=== PATIENT | female | born 1965 | race Caucasian/White ===

== ENCOUNTER → 2024-06-18 08:05 | Outpatient (REF) | payer BC, SELFPAY ==
[2024-06-18 09:55] LABS: % Basophils 0.7 % (0-2); % Eosinophils 3.7 % (0-6); % Immature Granulocytes 0.2 % (0-0.5); % Lymphocytes 31.8 % (20.5-51.1); % Monocytes 8.2 % (1.7-9.3); % Neutrophils 55.4 % (42.2-75.2); Absolute Eosinophils 0.2 10^3/uL (0-0.7); Absolute Lymphocytes 1.3 10^3/uL (1.2-3.4); Absolute Monocytes 0.3 10^3/uL (0.1-0.6); Absolute Neutrophils 2.2 10^3/uL (1.4-6.5); Hematocrit 38.9 % (37.0-47.0); Hemoglobin 13.1 g/dL (12.0-16.0); Mean Corp Hgb Conc. 33.7 g/dL (33.0-37.0); Mean Corpuscular Hgb 30.8 pg (27.0-31.0); Mean Corpuscular Volume 91.3 fL (81.0-99.0); Mean Platelet Volume 11.9 fL (7.4-10.4); Nucleated Red Blood Cells % 0 %; Platelet Count 226 10^3/uL (130-400); Red Blood Cell Count 4.26 10^6/uL (4.20-5.40); Red Cell Dist. Width 12.7 % (11.5-14.5)
[2024-06-18 10:20] LABS: ALT (SGPT) 24 U/L (0-35); AST (SGOT) 24 U/L (14-36); Albumin 4.3 g/dl (3.5-5.0); Alkaline Phosphatase 74 U/L (38-126); Blood Urea Nitrogen 13 mg/dl (7-17); Calcium 9.7 mg/dl (8.4-10.2); Carbon Dioxide 24 mmol/L (22-30); Chloride 106 mmol/L (98-107); Glucose 101 mg/dl (70-99); HDL Cholesterol 71 mg/dl; LDL Cholesterol, Calculated 117 mg/dl; Potassium 4.5 mmol/L (3.5-5.1); Sodium 144 mmol/L (135-145); Total Bilirubin 0.4 mg/dl (0.2-1.3); Total Cholesterol 202 mg/dl (50-199); Total Protein 6.7 g/dl (6.3-8.2); Triglyceride 71 mg/dl (10-149); Very Low Density Lipoprotein 14 mg/dl (0-30); eGFR > 60.00
== END ==
LOC: HWLAB 08:05
PROVIDERS: ATTENDING PHYSICIAN Nurse Practitioner Family
DX: Z00.01 Encounter for general adult medical examination with abnormal findings (principal); E03.9 Hypothyroidism, unspecified; F41.9 Anxiety disorder, unspecified
CPT/HCPCS: 36415; 80053; 80061; 84443; 85025

== ENCOUNTER → 2024-11-15 18:08 | Outpatient (REF) | payer BC, SELFPAY | LOC: WDC 18:08 | PROVIDERS: ATTENDING PHYSICIAN Nurse Practitioner Family | DX: Z12.31 Encounter for screening mammogram for malignant neoplasm of breast (principal) | CPT/HCPCS: 77063; 77067 ==

== ENCOUNTER 2024-12-14 06:51 | Emergency (ER) | payer BC, SELFPAY ==
[2024-12-14 07:00] VITALS: BP 138/78
[2024-12-14 07:08] VITALS: BP 127/86
[2024-12-14 07:26] LABS: % Basophils 0.9 % (0-2); % Eosinophils 3.2 % (0-6); % Immature Granulocytes 0.2 % (0-0.5); % Lymphocytes 22.6 % (20.5-51.1); % Monocytes 7.8 % (1.7-9.3); % Neutrophils 65.3 % (42.2-75.2); Absolute Basophils 0.1 10^3/uL (0-0.2); Absolute Eosinophils 0.2 10^3/uL (0-0.7); Absolute Lymphocytes 1.3 10^3/uL (1.2-3.4); Absolute Monocytes 0.4 10^3/uL (0.1-0.6); Absolute Neutrophils 3.6 10^3/uL (1.4-6.5); Hematocrit 39.2 % (37.0-47.0); Mean Corp Hgb Conc. 33.2 g/dL (33.0-37.0); Mean Corpuscular Hgb 30.4 pg (27.0-31.0); Mean Corpuscular Volume 91.6 fL (81.0-99.0); Mean Platelet Volume 11.6 fL (7.4-10.4); Nucleated Red Blood Cells % 0 %; Platelet Count 189 10^3/uL (130-400); Red Blood Cell Count 4.28 10^6/uL (4.20-5.40); Red Cell Dist. Width 12.8 % (11.5-14.5); White Blood Cell Count 5.5 10^3/uL (4.8-10.8)
[2024-12-14 07:36] LABS: ALT (SGPT) 16 U/L (0-35); AST (SGOT) 18 U/L (14-36); Albumin 4.3 g/dl (3.5-5.0); Alkaline Phosphatase 81 U/L (38-126); Blood Urea Nitrogen 11 mg/dl (7-17); Calcium 9.1 mg/dl (8.4-10.2); Carbon Dioxide 28 mmol/L (22-30); Chloride 104 mmol/L (98-107); Glucose 104 mg/dl (70-99); Potassium 4.5 mmol/L (3.5-5.1); Sodium 139 mmol/L (135-145); Total Bilirubin 0.5 mg/dl (0.2-1.3); Total Protein 6.6 g/dl (6.3-8.2); eGFR > 60.00
[2024-12-14 07:46] LABS: Troponin I < 0.012 ng/ml
--- NOTE | 2024-12-14 07:49 | ED.GENMED ---
History of Present Illness
General
Chief Complaint: Chest Pain
Source: patient
Exam Limitations: none
Time Seen by Provider: 12/14/24 07:36
History of Present Illness
History of Present Illness:
See MDM
Past History
Past History
ED Past Medical History: Psychiatric
ED Past Surgical History: None
Social History
Tobacco: Non-smoker
Alcohol: None
Phy Exam
Physical Exam
Physical Exam:
See MDM
Scores
Heart Score for Chest Pain Patients
STEMI patient?: No
History: Slightly or Non-Suspicious
ECG: Normal
Age: >45 - <65 years
Risk Factors: No Risk Factors
Troponin: </= Normal Limit
Heart Score for Chest Pain Patients: 1
Heart Score Risk: 2.5% MACE over next 6 weeks
Course
Orders/Labs/Results
Orders:
Orders
12/14/24 06:52
EKG [Electrocardiogram (*1)] Urgent
Reason for Study: Chest Pain
EKG- Treatment ONCE
12/14/24 07:11
Complete Blood Count/With Diff Urgent
Comprehensive Metabolic Panel Urgent
Troponin I Urgent
12/14/24 09:30
Troponin I Urgent
Abnormal Lab Results
12/14/24
07:11
MPV 11.6 H fL
(7.4-10.4)
Glucose 104 H mg/dl
(70-99)
12/14/24 07:11
12/14/24 07:11
Vital Signs
Initial and Last Documented VS:
Initial Vital Signs
Temp Pulse Resp BP Pulse Ox
98.1 F 58 16 138/78 97
12/14/24 07:00 12/14/24 07:00 12/14/24 07:00 12/14/24 07:00 12/14/24 07:00
Last Documented Vital Signs
Temp Pulse Resp BP Pulse Ox
98.1 F 57 15 109/81 97
12/14/24 07:00 12/14/24 09:30 12/14/24 09:30 12/14/24 09:27 12/14/24 08:24
MDM/Problems Addressed
Differential Diagnosis Includes:
HPI and MDM Narrative:
59-year-old female presenting for evaluation of intermittent chest discomfort. Around 530, she noted chest discomfort lasting about 10 minutes. This happened at rest. It self resolved. It did recur soon afterwards and lasted about 20 minutes.
Patient denies prior history of cardiac issues. She states she has a family history of heart disease. EKG done showing no ischemic changes. Given no symptoms with exertion, doubt ACS but will obtain 2 troponin rule out
Physical exam
General: Well appearing and non-toxic
HEENT: protecting airway
Neck: appears supple
CV: No evidence of cyanosis. Regular rate and rhythm
Resp: No accessory muscle use. Lungs clear
Abd: Non-distended
Extremities: No deformities. No leg edema
Neuro: alert
Psych: Normal affect
Skin: Intact
Problems Addressed including Acute and Chronic Conditions affecting care:
1. Resolved chest discomfort
Acuity: acute
Prognosis: stable
Details: Given no exertional component, doubt ACS. Regardless, will obtain 2 troponin rule out
Updates
Troponin negative x 2. Patient remains symptom-free. Will place on cardiac callback tracker
Differential Diagnosis (but not limited to): Noncardiac chest pain, ACS, gastritis
Testing considered: Chest x-ray but she currently has no symptoms
Drug therapy (if applicable): OTC meds, please see d/c instruction regarding Rx drugs
Amount and/or Complexity of Data Reviewed
Clinical info obtained from: Patient
External data reviewed: N/A
Labs I independently reviewed (but not limited to): Troponin negative x 2
Radiology: N/A
Pulse Ox: not hypoxic
EKG independently reviewed: Sinus rhythm, normal axis, no STEMI
Furniture Sales Consultant: Sinus rhythm
Critical Care: N/A
Risk of Complication:
Social Determinants of health: Good social support
Discussed with other providers: N/A
Escalation of Care includes Admit/Obs: After being observed in the Emergency Department, pt stable for discharge.
Occasional wrong word or 'sound a like' substitutions may have occurred due to the inherent limitations of voice recognition software. Read the chart carefully and recognize, using context, where substitutions have occurred.
*Critical Care Note
Total Time (30-74mins, 75-104mins- exclusive of procedures): Not Applicable
ED Attending Note
-
Portions of this chart may have been created with voice recognition software.� Occasional wrong word or��sound alike� substitutions may have occurred due to the inherent limitations of voice recognition software.
Discharge Plan
Departure
Patient Disposition: Home (Routine Discharge)
Date of Disposition: 12/14/24
Time of Disposition: 10:11
Patient with high blood pressure during this ER visit?: No
Discharge Problem:
Chest discomfort
Instructions: Chest Pain DCA Follow Up
Prescriptions:
No Action
levothyroxine 75 MCG tablet
75 mcg PO DAILY
alprazolam 0.25 MG tablet
1 tab PO PRN PRN (Reason: ANXIETY)
escitalopram oxalate 20 MG tablet
1 tab PO HS
Referrals:
Adair Diaz MD [Family Provider] -
Elizabeth Bradford DO [Active] -
Activity Restrictions/Additional Instructions:
Please return for any worsening symptoms.
You may return at any time if you have further concerns.
Please follow up with your doctor at the first available appointment, preferably this week.
You were placed on the cardiac callback tracker. Someone from their office should call you in the next few days. If you do not hear from them in the next few days, please give them a call.
Thank you for choosing [facility].
Interventions
Interventions:
*Risk Screen - Suicide Last Done: 12/14/24 06:54
*General Assessment Last Done: 12/14/24 07:18
*Neglect/Abuse Screening Last Done: 12/14/24 07:18
*ED- Fall Risk Assessment Last Done: 12/14/24 07:18
*ED COVID-19 Vaccine History Last Done: 12/14/24 07:18
ED- Cardiac Assessment Last Done: 12/14/24 07:18
Discharge Date and Time
Print Language: YEMENI
[2024-12-14 08:00] VITALS: BP 122/77
[2024-12-14 09:27] VITALS: BP 109/81
[2024-12-14 10:00] VITALS: BP 115/80
[2024-12-14 10:02] LABS: Troponin I < 0.012 ng/ml
== END 2024-12-14 10:25 | disposition home or self-care (01) ==
LOC: EMR 06:51
PROVIDERS: EMERGENCY PHYSICIAN Student in an Organized Health Care Education/Training Program; FAMILY PHYSICIAN Family Medicine
DX: R07.89 Other chest pain (principal)
CPT/HCPCS: 99283; 80053; 84484; 85025; 93005

== ENCOUNTER → 2025-04-17 07:01 | Outpatient (REF) | payer BC, SELFPAY | LOC: HWRAD 07:01 | PROVIDERS: ATTENDING PHYSICIAN Physician Assistant | DX: D17.21 Benign lipomatous neoplasm of skin and subcutaneous tissue of right arm (principal) | CPT/HCPCS: 76882 ==

== ENCOUNTER 2025-06-27 06:02 | Day surgery (SDC) | payer BC, SELFPAY ==
[2025-06-27 06:15] VITALS: BMI 31.5
[2025-06-27 06:28] VITALS: BMI 31.5
[2025-06-27 06:30] VITALS: BP 110/67
[2025-06-27] MEDS: TYLENOL 1000 MG PO (06:31)
[2025-06-27] MEDS: NORMOSOL-R/PLASMALYTE-A 1000 IV (06:32)
--- NOTE | 2025-06-27 07:23 | W.SUR.PREOP ---
Pre-Operative Surgical Note
-
I have examined this patient prior to the performance of the scheduled procedure.
The patient's condition is unchanged from the time of the current History and
Physical and the patient is able to undergo the scheduled procedure.
--- NOTE | 2025-06-27 07:23 | HP.FOC2 ---
Focused History & Physical
Chief Complaint
HPI:
Chief Complaint: Right upper extremity subcutaneous mass
HPI / Indication for Planned Procedure: This is a 59-year-old female who presents with a symptomatic enlarging right upper extremity subcutaneous mass, likely lipoma will excise under local in the OR.
Relevant Past Medical History: Negative
Relevant Social History: Negative
Relevant Family History: Negative
Relevant Past Surgical History: Negative
Review of Systems
Review of Pertinent Systems: All Systems Negative
Medication
See Medication form for detailed medications: Yes
Medication List (including Herbals & OTC):
alprazolam 0.25 mg tablet 1 tab PO PRN PRN ANXIETY 07/02/20
escitalopram oxalate 20 mg tablet 1 tab PO HS 07/02/20
levothyroxine 75 mcg tablet 75 mcg PO DAILY 07/02/20
bupropion HCl 300 mg 24 hr tablet, extended release 300 mg PO DAILY 06/25/25
Allergies and Reactions
Patient has Allergies: No
Noted Allergies and Reactions:
Allergy/AdvReac Type Severity Reaction Status Date / Time
No Known Allergies Allergy Verified 06/27/25 06:28
Pertinent Physical Exam
All Other Systems: Negative
Head/Neck: Normal
Diagnosis / Assessment
This is a 59-year-old female who presents with a symptomatic enlarging right upper extremity subcutaneous mass, likely lipoma will excise under local in the OR.
Plan / Procedure
This is a 59-year-old female who presents with a symptomatic enlarging right upper extremity subcutaneous mass, likely lipoma will excise under local in the OR.
Anesthesia/Sedation to be done by Anesthesia Provider: Yes
--- NOTE | 2025-06-27 08:05 | W.IMMPOSTOP ---
Surgical Immed Post Op Note
-
Primary Surgeon: Casey Hwang MD
Assisting Surgeon: None
Pre-op Diagnosis: Right upper extremity mass
Post-op Diagnosis: Same
Procedure Performed: Excision of a right upper extremity subcutaneous mass
Anesthesia Type: General
Specimen / Cultures: Right upper extremity mass
Estimated Blood Loss: 1 cc
Complications: None
Operative Findings: After prepping and draping the patient in the usual fashion, a linear incision was made over the mass and infiltrated with 8cc of 1% lidocaine with epi. A firm calcified mass was identified in the subcutaneous space just above
the fascia of the anterior compartment of the right forearm and peeled off of the underlying fascia. The mass was removed intact and passed off the field. It measured roughly 2.5 x 2 x 1 cm. The wound was then closed in layers with 3-0 Vicryl
sutures followed by Dermabond.
[2025-06-27 08:10] VITALS: BP 112/68
--- NOTE | 2025-06-27 08:12 | OR.RPT ---
Operative Report
Operative Report
Patient Name: Olya Bejarano
: 1965
Date of Operation: 06/27/2025
Preoperative Diagnosis: Right upper extremity mass
postoperative Diagnosis: Same
Procedure(s):
Excision of a subcutaneous right upper extremity mass
Surgeon(s):
Dr. Hwang
Cra(s):
ADELAIDA Hewitt
Anesthesia: Local
Estimated Blood Loss: 1 cc
Urine Output: None
Drains/Lines/Implants: None
Specimens:
1. Right upper extremity mass
Indication for surgery:
This is a 59-year-old female who presented with an enlarging right upper extremity subcutaneous mass confirmed on ultrasound. After evaluation in the office they were diagnosed with a a mass of unclear etiology though a lipoma was favored. After
discussion of risk benefits and alternatives they elected and were consented for surgery.
Operative Findings: After prepping and draping the patient in the usual fashion, a linear incision was made over the mass and infiltrated with 8cc of 1% lidocaine with epi. A firm calcified mass was identified in the subcutaneous space just above
the fascia of the anterior compartment of the right forearm and peeled off of the underlying fascia. The mass was removed intact and passed off the field. It measured roughly 2.5 x 2 x 1 cm. The wound was then closed in layers with 3-0 Vicryl
sutures followed by Dermabond.
Details of the operation:
The patient was brought to the operating room a placed in the supine position with the right arm out on an armboard. The arm was prepped and draped in the usual fashion. A linear incision over natural skin line was made over the mass and carried
down through the subcutaneous tissue. The mass a was identified and found to be fairly calcified and lying just anterior to the anterior fascia of the anterior compartment. The mass was freed circumferentially taking care not to come across it.
The specimen which measured roughly 2.5 x 2 x 1 cm was passed off the field. The cavity was irrigated and hemostasis was achieved. The space was closed with interrupted 3-0 Vicryl sutures. The dermis was then approximated using interrupted 3-0
Vicryl sutures followed dermabond. All counts were correct at the end of procedure. The patient was then transferred to the PACU for recovery.
I was the attending physician and performed the procedure with assistance of the PA above. The assistance of ADELAIDA Hewitt was required due to the complexity of the procedure. During the procedure Beth assisted with retraction, resection, and
closure of the wound. I was present for all portions of the case, excluding skin closure.
Casey Hwang MD
== END 2025-06-27 08:35 | disposition home or self-care (01) ==
LOC: SDS 06:02
PROVIDERS: ATTENDING PHYSICIAN Surgery
DX: R22.31 Localized swelling, mass and lump, right upper limb (principal)
CPT/HCPCS: 24075; 88304